=== PATIENT | female | born 1935 | race Caucasian/White ===

== ENCOUNTER 2018-06-28 21:33 | Emergency (ER) | payer OTHER ==
[~2018-06-28] VITALS: Ht 152.4 cm; Wt 60.8 kg
[2018-06-28] MEDS ORDERED: TOPROL XL25 M1 (21:55)
[2018-06-28] MEDS ORDERED: CRESTOR5 MG (21:55)
[2018-06-28] MEDS ORDERED: EFFEXOR XR37.5 MG (21:55)
[2018-06-28] MEDS ORDERED: ASPIR 8181 MG (21:55)
[2018-06-28] MEDS ORDERED: PLAVIX75 MG (21:55)
[2018-06-28] MEDS ORDERED: ARICEPT10 MG (21:56)
[2018-06-28] MEDS ORDERED: SPIRIVA RESPIMAT4 G1 (21:56)
== END 2018-06-28 22:25 | disposition home or self-care (01) ==
LOC: ER 21:33
DX: J44.9 Chronic obstructive pulmonary disease, unspecified (principal); R06.02 Shortness of breath

== ENCOUNTER → 2022-08-26 | Emergency (ER) | payer OTHER ==
[~2022-08-26] VITALS: Ht 154.9 cm; Wt 51.3 kg
[~2022-08-26] MED LIST: ARICEPT10 MG; ASPIR 8181 MG; CRESTOR5 MG; EFFEXOR XR37.5 MG; PLAVIX75 MG; SPIRIVA RESPIMAT4 G1; TOPROL XL25 M1
== END | disposition home or self-care (01) ==
LOC: ER 21:09
DX: J44.9 Chronic obstructive pulmonary disease, unspecified (principal); I10 Essential (primary) hypertension; Z88.8 Allergy status to other drugs, medicaments and biological substances; I51.7 Cardiomegaly